=== PATIENT | male | born 1975 | race Two or more races ===

== ENCOUNTER 2023-05-29 20:15 | Emergency (ER) | payer OTHER ==
[~2023-05-29] VITALS: Ht 175.3 cm; Wt 77.1 kg
== END 2023-05-30 01:06 | disposition home or self-care (01) ==
LOC: ER 20:15
DX: S91.119A Laceration without foreign body of unspecified toe without damage to nail, initial encounter (principal); X58.XXXA Exposure to other specified factors, initial encounter; Y93.89 Activity, other specified; Y92.89 Other specified places as the place of occurrence of the external cause; Y99.8 Other external cause status